=== PATIENT | female | born 1995 | race African-American/Black ===

== ENCOUNTER 2016-04-27 07:35 | Emergency (ER) | payer OTHER ==
[~2016-04-27] VITALS: Ht 172.7 cm; Wt 74.8 kg
--- NOTE | 2016-04-27 07:45 | ED GENERAL ADULT ---
History of Present Illness General Chief Complaint: General Adult Stated Complaint: CP PAIN, DIZZINESS 7 MONTHS Source: patient Exam Limitations: no limitations Vital Signs & Intake/Output Vital Signs & Intake/Output Vital Signs Date Time Temp Pulse Resp B/P Pulse O2 O2 Flow FiO2 Ox Delivery Rate 04/27 1529 97.9 95 16 109/63 100 Room Air 04/27 1144 97.1 93 20 104/62 100 Room Air 04/27 0952 96.9 84 20 108/72 99 Room Air 04/27 0756 99 Room Air 04/27 0738 96.1 91 16 115/77 98 Room Air Allergies Coded Allergies: No Known Allergies (04/27/16) Reconcile Medications No Known Home Medications Triage Note: 21 Y/O FEMALE C/O "DEPRESSION THATS TAKING OVER MY BODY". C/O L SIDED CHEST PAIN AND DIZZINESS X 1 WEEK; REPORTS DECREASED APPETITE/PO INTAKE AND DIFFICULTY SLEEPING. STATES SHE WOULD LIKE TO TALK TO SOMEONE ABOUT HER DEPRESSION WHILE SHE IS HERE. DENIES SI/HI. CURRENTLY 7 MONTHS ; ; OB DR ESTRADA - EDC 07/03/16. DENIES CIRCLE EDGER COMPLAINTS Triage Nurses Notes Reviewed? yes Onset: Abrupt : Yes Patient currently breastfeeds: No HPI: 04/27/16 8 AM This is a 21-year-old female who presents to the emergency department complaining of sharp intermittent chest pain over the past 2 weeks. The patient also claims that she's been very depressed since the start of her and would like to talk to someone. She denies fever or cough but does admit to intermittent difficulty breathing and also to dizziness. The onset of the symptoms were abrupt, the duration has been 2 weeks, the severity is significant ; as her symptoms required her to come to the emergency department for care. She is a 1 para 0. She has no abdominal pain or vaginal bleeding Past History Travel History Traveled to [place] past 21 day No Medical History Any Pertinent Medical History? see below for history Neurological: NONE EENT: NONE Cardiovascular: NONE Respiratory: NONE Gastrointestinal: NONE Hepatic: NONE Renal: NONE Musculoskeletal: NONE Psychiatric: NONE Endocrine: NONE Blood Disorders: NONE Cancer(s): NONE REPLANTER/Reproductive: NONE Surgical History Surgical History: non-contributory Psychosocial History What is your primary language Turkmen Tobacco Use: Never used Family History Hx Contributory? No Review of Systems Review of Systems Constitutional: Denies: fever. EENTM: Reports: blurred vision. Respiratory: Reports: short of breath. Denies: cough. Cardiovascular: Reports: chest pain. GI: Denies: abdominal pain. Genitourinary: Reports: see HPI. Musculoskeletal: Reports: no symptoms. Skin: Reports: no symptoms. Neurological/Psychological: Denies: headache. Hematologic/Endocrine: Reports: no symptoms. Immunologic/Allergic: Reports: no symptoms. Physical Exam Physical Exam General Appearance: well developed/nourished, alert, awake, anxious, mild distress Head: atraumatic, normal appearance Eyes: Bilateral: normal appearance, PERRL, EOMI. Ears, Nose, Throat: normal pharynx, normal ENT inspection Neck: normal inspection, supple Respiratory: normal breath sounds, chest non-tender, no respiratory distress Cardiovascular: regular rate/rhythm Peripheral Pulses: 4+ radial (R), 4+ radial (L) Gastrointestinal: soft (GRAVID UTERUS), non-tender Back: normal range of motion Extremities: normal inspection, normal range of motion, no edema Neurologic/Psych: no motor/sensory deficits, awake, alert, oriented x 3 Skin: intact, normal color, warm/dry Core Measures ACS in differential dx? No CVA/TIA Diagnosis: No Severe Sepsis Present: No Septic Shock Present: No Progress Differential Diagnoses I considered the following diagnoses in my evaluation of the patient: [ Myocarditis, cardiomyopathy, pulmonary embolism, costochondritis, depression, suicidal ideation] Plan of Care: Orders Procedure Date/time Status Regular Diet 04/27 L Active D-DIMER 04/27 0824 Complete Add-on Test (ER Only) 04/27 0823 Active CULTURE,URINE 04/27 08 Active URINALYSIS 04/27 08 Complete URINE DRUG SCREEN FOR ER ONLY 04/27 08 Complete TROPONIN LEVEL 04/27 08 Complete ETHANOL 04/27 0812 Complete COMPREHENSIVE METABOLIC PANEL 04/27 0812 Complete CBC WITHOUT DIFFERENTIAL 04/27 08 Complete ED CRISIS PSYCH CONSULT 04/27 08 Active EKG 04/27 0737 Active Laboratory Tests 04/27/16 0820: Anion Gap 10, Estimated GFR > 60, BUN/Creatinine Ratio 12.0, Glucose 80, Calcium 9.2, Total Bilirubin 0.8, AST 22, ALT 23, Alkaline Phosphatase 122, Troponin I < 0.01, Total Protein 6.8, Albumin 3.6, Globulin 3.2, Albumin/Globulin Ratio 1.1, D-Dimer 452 H, CBC w Diff NO MAN DIFF REQ, RBC 4.38, MCV 85.9, MCH 28.9, RDW 13.1, MPV 8.3, Gran % 73.5, Lymphocytes % 17.3 L, Monocytes % 8.2, Eosinophils % 0.7, Basophils % 0.3, Absolute Granulocytes 7.5 H, Absolute Lymphocytes 1.8, Absolute Monocytes 0.8 H, Absolute Eosinophils 0.1, Absolute Basophils 0, PUBS MCHC 33.6, Serum Alcohol < 10.0 04/27/16812: Urine Opiates Screen < 100.00, Methadone Screen < 40, Barbiturate Screen < 60, Ur Phencyclidine Scrn < 6.00, Amphetamines Screen < 100, U Benzodiazepines Scrn < 85, Urine Cocaine Screen < 50, Urine Cannabis Screen < 5.00, Urine Color YEL, Urine Clarity HAZY H, Urine pH 6.0, Ur Specific [place] 1.025, Urine Protein TRACE H, Urine Ketones TRACE H, Urine Nitrite NEG, Urine Bilirubin NEG, Urine Urobilinogen 1.0, Ur Leukocyte Esterase TRACE H, Ur Microscopic SEDIMENT EXAMINED, Urine RBC RARE, Urine WBC RARE, Ur Epithelial Cells MANY H, Urine Crystals 1+ CA OX H, Urine Bacteria MANY H, Urine Mucus MOD H, Urine Hemoglobin NEG, Urine Glucose NEG Microbiology 04/27 812 URINE ROUT: Urine Culture - RECD Initial ED EKG: NSR Departure Departure Disposition: STILL A PATIENT Condition: Stable Clinical Impression Primary Impression: Chest pain Secondary Impressions: Depression, Referrals: PATIENT HAS NO PRIMARY CARE DR Departure Forms: Customer Survey General Discharge Information Prescriptions: Current Visit Scripts No Known Home Medications Comments 04/27/16 1:44 PM The patient's lower extremity ultrasound was negative. She says that she's had the chest pain and difficulty breathing at that has been intermittent for weeks. I discussed the elevated d-dimer and the concern for the possibility of pulmonary embolism. My clinical concern is low as she has no resting tachycardia, the symptoms are intermittent, and a lower extremity ultrasound is negative. I discussed the risks and benefits of CTA with the patient. She declined the CAT scan. I agree with this decision is elevated d-dimer is likely related to her . Shared decision-making was utilized in the care of this patient. I discussed the patient's plan of care with Dr. Estrada. The patient had no chest pain or shortness of breath in the ED. No tachycardia. Lower extremity ultrasound negative. She will return to the emergency department if worse. 04/27/16 3 pm patient seen evaluated and cleared by Crisis Critical Care Note Critical Care Note Critical Care Time: non-applicable
[2016-04-27 08:49] LABS: ABSOLUTE BASOPHIL COUNT 0 /CUMM (0.0-0.2); ABSOLUTE EOSINOPHIL COUNT 0.1 /CUMM (0.0-0.7); ABSOLUTE GRANULOCYTE CT 7.5 /CUMM (1.4-6.5); ABSOLUTE LYMPH COUNT 1.8 /CUMM (1.2-3.4); ABSOLUTE MONOCYTE COUNT 0.8 /CUMM (0.10-0.60); BASOPHIL % 0.3 % (0.0-2.0); EOSINOPHIL % 0.7 % (0-5); GRANULOCYTE % 73.5 % (42.2-75.2); HEMATOCRIT 37.7 % (37-47); MEAN CORPUSCULAR HGB 28.9 PG (27.0-31.0); MEAN CORPUSCULAR HGB CONC 33.6 G/DL (33.0-37.0); MEAN CORPUSCULAR VOLUME 85.9 FL (81.0-99.0); MEAN PLATELET VOLUME 8.3 FL (7.4-10.4); PLATELET COUNT 189 /CUMM (130-400); RBC DISTRIBUTION WIDTH 13.1 % (11.5-14.5); RED BLOOD CELL CT 4.38 /CUMM (4.20-5.40); WHITE BLOOD CELL COUNT 10.2 /CUMM (4.8-10.8)
--- NOTE | 2016-04-27 12:12 | ULTRASOUND REPORT ---
EXAMINATION: US TRIPLEX LOWER EXTREMITY, BILATERAL CLINICAL INFORMATION: Lower extremity swelling. Evaluate for DVT. COMPARISON: No relevant prior imaging is available. TECHNIQUE: Color-flow triplex imaging with spectral analysis and compression Doppler were performed on the bilateral lower extremities. FINDINGS: The visualized common femoral vein, superficial femoral vein, profunda femoral vein, popliteal vein and midcalf peroneal and posterior tibial venous segments show no evidence of deep venous thrombosis. There is no Clark's cyst. There is nonspecific swelling within the superficial soft tissues of both lower extremity. IMPRESSION: Normal triplex scan without evidence of deep venous thrombosis involving either of the lower extremities.
--- NOTE | 2016-04-27 14:30 | ED PSYCH CRISIS CONSULTATION ---
Crisis Consult Basic Assessment Date of Consult: 04/27/16 Responsible Person/Accompanied By: self accompanied by her sister Insurance Authorization: Insurance #1: Insurance name: TERE Fuentes C&A Phone number: Policy number: [id number] Group number: Authorization number: ED Provider: Patient's ED Provider: TAINA ROMERO DO Primary Care Physician: Patient's PCP: KRISTEN ESTRADA MD PCP's Current Psychiatrist: none Chief Complaint: General Adult Patient's Quote: "I just have been feeling overwhelmed." Present Illness: Pt is a 21yo female who presented to the ED due to chest pain. While in the ED she asked for referrals for out pt tx due to some sx of depression. Crisis was asked to meet with pt to provide assistance with out pt referrals. 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 Pt adamantly denies any SI or hx of such. Pt reports a previous hx of out pt tx 7 months ago at [facility] but none currently. Pt denies any hx of inpt tx. Pt's sister Martha is at pt's bed side and she informed that pt's is supportive and they have been working on their communication. She informs that she lives near by and visits pt daily. She agrees that out pt therapy would be beneficial for pt. As crisis was working on setting up out pt tx for pt, she did not want to wait any longer and requested discharge. She was provided with a list of referrals. Dr. Hayes approved discharge. Patient's Address: [address] [place] [address] [address] [place] [address] Other Phone Number: Who Do You Live With? Family Family/Informants Interviewed: Sister Allergies - Coded Allergies: No Known Allergies (04/27/16) Current Medications - No Known Home Medications Laboratory Results: Laboratory Tests 04/27/16 0820: Anion Gap 10, Estimated GFR > 60, BUN/Creatinine Ratio 12.0, Glucose 80, Calcium 9.2, Total Bilirubin 0.8, AST 22, ALT 23, Alkaline Phosphatase 122, Troponin I < 0.01, Total Protein 6.8, Albumin 3.6, Globulin 3.2, Albumin/Globulin Ratio 1.1, D-Dimer 452 H, CBC w Diff NO MAN DIFF REQ, RBC 4.38, MCV 85.9, MCH 28.9, RDW 13.1, MPV 8.3, Gran % 73.5, Lymphocytes % 17.3 L, Monocytes % 8.2, Eosinophils % 0.7, Basophils % 0.3, Absolute Granulocytes 7.5 H, Absolute Lymphocytes 1.8, Absolute Monocytes 0.8 H, Absolute Eosinophils 0.1, Absolute Basophils 0, PUBS MCHC 33.6, Serum Alcohol < 10.0 04/27/16 0813: Urine Opiates Screen < 100.00, Methadone Screen < 40, Barbiturate Screen < 60, Ur Phencyclidine Scrn < 6.00, Amphetamines Screen < 100, U Benzodiazepines Scrn < 85, Urine Cocaine Screen < 50, Urine Cannabis Screen < 5.00, Urine Color YEL, Urine Clarity HAZY H, Urine pH 6.0, Ur Specific [place] 1.025, Urine Protein TRACE H, Urine Ketones TRACE H, Urine Nitrite NEG, Urine Bilirubin NEG, Urine Urobilinogen 1.0, Ur Leukocyte Esterase TRACE H, Ur Microscopic SEDIMENT EXAMINED, Urine RBC RARE, Urine WBC RARE, Ur Epithelial Cells MANY H, Urine Crystals 1+ CA OX H, Urine Bacteria MANY H, Urine Mucus MOD H, Urine Hemoglobin NEG, Urine Glucose NEG Microbiology 04/27 812 URINE ROUT: Urine Culture - RECD Past History Past Medical History Neurological: NONE EENT: NONE Cardiovascular: NONE Respiratory: NONE Gastrointestinal: NONE Hepatic: NONE Renal: NONE Musculoskeletal: NONE Psychiatric: NONE Endocrine: NONE Blood Disorders: NONE Cancer(s): NONE IT DESKTOP SUPPORT TECHNICIAN/Reproductive: NONE Past Surgical History Surgical History: non-contributory Psychosocial History Strengths/Capabilities: Supportive family, agreeable for out pt tx Physical Limitations (Interventions): none reported Psychiatric Treatment History Psych Treatment Psychiatric Treatment Yes Inpatient Treatment No Outpatient Treatment Yes Location of Treatment [facility] Reason for Treatment depression Dates of Treatment 7 months ago Response to Treatment good Diagnosis by History: unknown Substance Use/Abuse History Drug Use/Abuse Substances Used/Abused No Substance Abuse Treatment Substance Abuse Treatment Past Substance Abuse [place] No Inpatient Treatment No Outpatient Treatment No Current Mental Status Mental Status Orientation: Person, Place, Situation Affect: WNL Speech: WNL Neuro-vegetative: WNL Appearance Appearance- Dress/Hygiene: well groomed, good eye contact Behaviors Thought Process: WNL Thought Content: WNL Memory: WNL Insight: WNL SI/HI Risk Assessment Past Suicidal Ideation/Attempts No Current Suicidal Ideation/Att No Past Homicidal Ideation/Att: No Current Homicidal Ideation/Attempts No Degree of Intent: None Risk Factors: age (under 24/over 65), high anxiety/distress Lethality Ratin (mild) PTSD Checklist PTSD Done? patient declined ED Management Sitter: Yes Restraints: No DSM5/PS Stressors/Medical Prob Diagnosis' (DSM 5, Stressors, Medical): adjustment d/o with depressed mood f43.21 Current GAF: 45 Comments: for the 1st time, relationship stress Departure Disposition Psych Medical Clearance Date: 04/27/16 Medically Cleared at: 1410 Time Started: 1410 Time Ended: 1430 Psychiatrist Consulted: Jimmy Hayes MD Date Disposition Established: 04/27/16 Time Disposition Established: 143 Plan for Disposition - Modality: Outpatient Facility: Patient to Arrange Rationale for Disposition: pt not actively suicidal and agreeable to out pt tx Referrals NATALIE OVALLE,KRISTEN Castaneda (PCP/Family)
[2016-04-27 15:29] VITALS: BP 109/63
== END 2016-04-27 15:29 ==
LOC: ERH 07:35
PROVIDERS: Emergency Medicine
DX: O99.89 Other specified diseases and conditions complicating pregnancy, childbirth and the puerperium (principal); R07.9 Chest pain, unspecified; F32.9 Major depressive disorder, single episode, unspecified; Z3A.00 Weeks of gestation of pregnancy not specified
CPT/HCPCS: 80307; 81001; 87086; 93005; 93010; 93970; G0463; G0480

== ENCOUNTER 2016-07-02 20:30 | Observation (INO) | payer OTHER | END 2016-07-03 10:30 | disposition HSC | LOC: CBCO 20:30 → GNO 23:30 | PROVIDERS: ADMIT Specialist | DX: O47.1 False labor at or after 37 completed weeks of gestation (principal); Z3A.39 39 weeks gestation of pregnancy | CPT/HCPCS: 81001; G0378; G0463 ==

== ENCOUNTER 2016-07-05 04:47 | Inpatient (IN) | payer OTHER ==
[~2016-07-05] VITALS: Ht 172.7 cm; Wt 77.1 kg
[2016-07-05 10:15] VITALS: BP 108/68
--- NOTE | 2016-07-05 10:51 | History & Physical ---
General Information and HPI MD Statement: I have seen and personally examined CHIQUIS LONDONO and documented this H&P. The patient is a 21 year old female at [40] weeks and [2] days gestation who presented with a chief complaint of [active labor]. Source of Information: police History of Present Illness: 21yo G1 edc 07/03/16 admitted for prodromal labor and given therapeutic rest. This morning pt fully dilated. care complete and unremarkable with Caroline Arambula. Allergies/Medications Allergies: Coded Allergies: No Known Allergies (04/27/16) Home Med list No Known Home Medications Past History insurance territory manager History : 1 Para: 0 Last Menstrual Period: unknown Estimated Delivery Date: 07/03/16 Past insurance territory manager History: none Medical History Neurological: NONE EENT: NONE Cardiovascular: NONE Respiratory: NONE Gastrointestinal: NONE Hepatic: NONE Renal: NONE Musculoskeletal: NONE Psychiatric: NONE Endocrine: NONE Blood Disorders: NONE Cancer(s): NONE SENIOR BENEFITS ANALYST/Reproductive: NONE Surgical History Pertinent Surgical History: non-contributory Past Family/Social History Psychosocial History Smoking Status: Never Smoked Review of Systems Review of Systems Constitutional: Reports: no symptoms. EENTM: Reports: no symptoms. Cardiovascular: Reports: no symptoms. Respiratory: Reports: no symptoms. GI: Reports: no symptoms. Genitourinary: Reports: see HPI. Musculoskeletal: Reports: no symptoms. Skin: Reports: no symptoms. Neurological/Psychological: Reports: no symptoms. Hematologic/Endocrine: Reports: no symptoms. Immunologic/Allergic: Reports: no symptoms. All Other Systems: Reviewed and Negative Exam & Diagnostic Data Last 24 Hrs of Vital Signs/I&O Vital Signs Date Time Temp Pulse Resp B/P B/P Pulse O2 O2 Flow FiO2 Mean Ox Delivery Rate 07/05 1015 108/68 Intake & Output 07/05 1600 07/05 0800 07/05 0000 Intake Total Output Total Balance Patient 170 lb Weight Obstetric Exam Wgt Gained During : 30 Pelvimetry: gynecoid Dilation (cm): 10 Effacement (%): 10 Station: 0 Membranes: intact Fluid: unknown Fundal Height (cm): 40 Multiple Gestation? No Contractions: none Infant #1 - FHR Baseline: 120 Category: 1 Estimated Weight: 6.5 Presentation: cephalic Patient for Induction? No Tavera Score Tavera Score Response Value Cervix Position: anterior 2 Cervix Consistency: soft 2 Cervix Effacement: >80% 3 Cervix Dilation: >5 cm 3 Cervix Station: +1,+2 3 Total 13 Physical Exam: Chest: CTA CV: nl S1S2 Abd: gravid, cephalic, 7-10 Ext: no C/C/E Labs Blood Type & Rh: O pos Antibody Screen: neg Hct/Hgb & Platelets #1: 244 Hct/Hgb & Platelets #2: 189 Rubella: imm VDRL #1: nr VDRL #2: nr HbsAg: neg HIV #1: neg HIV #2 neg 1 Hr P Group B Strep: neg Initial Ultrasound: wnl Anatomy Ultrasound: wnl Genetic Testing: neg Last 24 Hrs of Labs/Brad: Laboratory Tests 07/05/16 1045: CBC w Diff Pending, WBC Pending, RBC Pending, Hgb Pending, Hct Pending, MCV Pending, MCH Pending, RDW Pending, Plt Count Pending, MPV Pending, PUBS MCHC Pending, Urine Color Pending, Urine Clarity Pending, Urine pH Pending, Ur Specific [place] Pending, Urine Protein Pending, Urine Ketones Pending, Urine Nitrite Pending, Urine Bilirubin Pending, Urine Urobilinogen Pending, Ur Leukocyte Esterase Pending, Ur Microscopic Pending, Urine Hemoglobin Pending, Urine Glucose Pending ITS Data ITS Data Unobtainable at this time Assessment/Plan Assessment/Plan: active labor expectant mgmt As Ranked By This Provider Problem List: 1. Core Measures/Miscellaneous Venous Thromboembolism VTE Risk Factors: / VTE Contraindications: No Contraindications VTE Diagnosis: No Beta Mami Is Beta Mami a Home Med? No Antibiotics Is Patient on Antibiotics? No
--- NOTE | 2016-07-05 10:53 | Labor & Delivery Summary ---
Delivery Summary Vaginal Delivery: Vaginal: spontaneous Episiotomy/Lacerations: Episiotomy/Lacerations: epis, lac Type: rml, left periuretheral Repair: layered 3-0 Anesthesia: local Placenta: Placenta: spontanteous, normal, 3 vessel Anesthesia: local Baby's Weight: 7-8 Apgars - 1 Min: 9 Apgars - 5 Min: 9 Additional Comments: thin mec. Pediatrics at delivery
[2016-07-05 11:03] LABS: ABSOLUTE BASOPHIL COUNT 0 /CUMM (0.0-0.2); ABSOLUTE EOSINOPHIL COUNT 0 /CUMM (0.0-0.7); ABSOLUTE GRANULOCYTE CT 12.3 /CUMM (1.4-6.5); ABSOLUTE LYMPH COUNT 1.3 /CUMM (1.2-3.4); ABSOLUTE MONOCYTE COUNT 0.8 /CUMM (0.10-0.60); BASOPHIL % 0.3 % (0.0-2.0); EOSINOPHIL % 0.1 % (0-5); GRANULOCYTE % 85.2 % (42.2-75.2); HEMATOCRIT 34.5 % (37-47); MEAN CORPUSCULAR HGB 26.4 PG (27.0-31.0); MEAN CORPUSCULAR HGB CONC 32.1 G/DL (33.0-37.0); MEAN CORPUSCULAR VOLUME 82.1 FL (81.0-99.0); MEAN PLATELET VOLUME 8.8 FL (7.4-10.4); PLATELET COUNT 171 /CUMM (130-400); RBC DISTRIBUTION WIDTH 14.4 % (11.5-14.5); WHITE BLOOD CELL COUNT 14.4 /CUMM (4.8-10.8)
[2016-07-05 17:04] LABS: ABSOLUTE BASOPHIL COUNT 0 /CUMM (0.0-0.2); ABSOLUTE EOSINOPHIL COUNT 0 /CUMM (0.0-0.7); ABSOLUTE GRANULOCYTE CT 13.2 /CUMM (1.4-6.5); ABSOLUTE LYMPH COUNT 1.6 /CUMM (1.2-3.4); ABSOLUTE MONOCYTE COUNT 1.2 /CUMM (0.10-0.60); BASOPHIL % 0.1 % (0.0-2.0); EOSINOPHIL % 0.1 % (0-5); GRANULOCYTE % 82.2 % (42.2-75.2); MEAN CORPUSCULAR HGB 26.5 PG (27.0-31.0); MEAN CORPUSCULAR HGB CONC 32.4 G/DL (33.0-37.0); MEAN CORPUSCULAR VOLUME 81.8 FL (81.0-99.0); MEAN PLATELET VOLUME 8.8 FL (7.4-10.4); PLATELET COUNT 181 /CUMM (130-400); RBC DISTRIBUTION WIDTH 14.7 % (11.5-14.5); RED BLOOD CELL CT 3.59 /CUMM (4.20-5.40); WHITE BLOOD CELL COUNT 16.1 /CUMM (4.8-10.8)
[2016-07-05 17:10] LABS: HEMATOCRIT 29.4 % (37-47)
[2016-07-06 06:11] LABS: ABSOLUTE BASOPHIL COUNT 0 /CUMM (0.0-0.2); ABSOLUTE EOSINOPHIL COUNT 0.1 /CUMM (0.0-0.7); ABSOLUTE GRANULOCYTE CT 11.1 /CUMM (1.4-6.5); ABSOLUTE LYMPH COUNT 1.7 /CUMM (1.2-3.4); ABSOLUTE MONOCYTE COUNT 1.2 /CUMM (0.10-0.60); BASOPHIL % 0.3 % (0.0-2.0); EOSINOPHIL % 0.7 % (0-5); GRANULOCYTE % 78.6 % (42.2-75.2); HEMATOCRIT 28.5 % (37-47); MEAN CORPUSCULAR HGB 26.5 PG (27.0-31.0); MEAN CORPUSCULAR HGB CONC 32.4 G/DL (33.0-37.0); MEAN CORPUSCULAR VOLUME 81.9 FL (81.0-99.0); PLATELET COUNT 198 /CUMM (130-400); RBC DISTRIBUTION WIDTH 14.3 % (11.5-14.5); RED BLOOD CELL CT 3.48 /CUMM (4.20-5.40); WHITE BLOOD CELL COUNT 14.1 /CUMM (4.8-10.8)
--- NOTE | 2016-07-06 17:56 | PN- Post Delivery/GYN ---
Subjective Subjective: NO COMPLAINTS Objective Last 24 Hrs of Vital Signs/I&O PER PAPER CHART Physical Exam: PE THIN BF IN NAD ABD SOFT NT FUNDUS FIRM NT LOCHIA MINIMAL EXT -EDEMA -HOMANS Assessment/Plan Assessment/Plan ASSESS S/P PLAN CONT PPC
[2016-07-07] MEDS ORDERED: IBUPROFEN800 M1 PO (09:37)
== END 2016-07-07 10:45 | DRG 560 ==
LOC: CBCO 04:47 → GNO 05:16
PROVIDERS: Obstetrics & Gynecology; ADMIT Specialist
PROC: 0HQ9XZZ Repair Perineum Skin, External Approach (ICD-10-PCS; principal; 2016-07-05)
PROC: 10E0XZZ Delivery of Products of Conception, External Approach (ICD-10-PCS; principal; 2016-07-05)
DX: O71.82 Other specified trauma to perineum and vulva (principal); Z3A.40 40 weeks gestation of pregnancy; Z37.0 Single live birth
CPT/HCPCS: GNOS; 36415; 81001; G0378; G0463; J2270; J2405; J7120

== ENCOUNTER → 2017-03-25 | Day surgery (SDC) | payer OTHER ==
[~2017-03-25] VITALS: Ht 167.6 cm; Wt 81.2 kg
[~2017-03-25] MED LIST: IBUPROFEN800 M1 PO; NEXPLANON68 M1
--- NOTE | 2017-03-30 14:00 | Operative Report ---
Operative/Inv Procedure Report Surgery Date: 03/25/17 Name of Procedure: Removal of nexplanon from left arm D&C hysteroscopy Pre-Operative Diagnosis: Menorrhagia Post-Operative Diagnosis: Same Estimated Blood Loss: scant Surgeon/Project Management Instructor: Caroline Mckeon MD Anesthesia: moderate sedation Operative/Procedure Note Note: Patient was taken to the operating room placed in dorsal supine position. Left arm was extended was prepped and draped so fashion Marcaine was injected underneath the On which had been identified using a marking pen prior to surgery at this point the skin was cut using a knife on blunt dissection was performed using a snap and the next point on was removed the skin was reapproximated using a Steri- Strip and Mastisol hemostasis was apparent After adequate anesthesia, patient was prepped and draped for surgery. Examination under anesthesia was performed. CO2 tenaculum was placed on the anterior lip of the cervix gentle downward traction was used. The cervix was dilated 29 Hegar to left insertion of the hysteroscope. Under direct visualization to hysteroscopy was performed using gas hysteroscope was removed and endocervical curettage was performed. And endometrial curettage was performed. All instruments removed from the vagina. The counts were correct the patient was awakened from anesthesia. And transported to recovery room awake and alert.
== END ==
LOC: STS 04:32
DX: N92.0 Excessive and frequent menstruation with regular cycle (principal); Z30.46 Encounter for surveillance of implantable subdermal contraceptive
CPT/HCPCS: 81003; 81025; J1885; J2250